=== PATIENT | male | born 1980 | race Caucasian/White ===

== ENCOUNTER 2016-10-04 08:16 | Emergency (ER) | payer OTHER ==
[~2016-10-04] VITALS: Ht 180.3 cm; Wt 75.0 kg
[2016-10-04 08:20] VITALS: BP 123/82; PULSE 92; TEMP 98.9
[2016-10-04] MEDS ORDERED: RITALIN 20M20 MG/TAB PO (08:23)
[2016-10-04] MEDS ORDERED: AMOXICILLIN875 MG PO (08:46)
== END 2016-10-04 08:56 | disposition home or self-care (01) ==
LOC: COL.ER 08:16
DX: H92.02 Otalgia, left ear (principal); R59.0 Localized enlarged lymph nodes

== ENCOUNTER 2018-05-03 09:23 | Emergency (ER) | payer OTHER ==
[~2018-05-03] VITALS: Ht 177.8 cm; Wt 75.0 kg
[~2018-05-03 09:23] MED LIST: AMOXICILLIN875 MG PO; RITALIN 20M20 MG/TAB PO
[2018-05-03 09:26] VITALS: BP 135/99; PULSE 84; TEMP 98.7
[2018-05-03] MEDS ORDERED: LEXAPRO20 MG PO (09:31)
[2018-05-03] MEDS ORDERED: DOXYCYCLINE HY100 MG PO (09:59)
== END 2018-05-03 10:22 | disposition home or self-care (01) ==
LOC: COL.ER 09:23
DX: L02.413 Cutaneous abscess of right upper limb (principal); F17.210 Nicotine dependence, cigarettes, uncomplicated; F43.10 Post-traumatic stress disorder, unspecified; F41.9 Anxiety disorder, unspecified; Z23 Encounter for immunization